=== PATIENT | female | born 1970 | race Caucasian/White ===

== ENCOUNTER 2020-11-18 08:19 | Emergency (ER) | payer BC ==
[~2020-11-18 08:19] MED LIST: BACTROBAN OINT22 GM EXT; DOXYCYCLINE MO100 M1 PO; NORCO 5-325 TA1 EACH PO; VISTARIL25 MG PO
[2020-11-18 09:00] LABS: HEMOGLOBIN 14.3 gm/dl (12.3-15.3); RED BLOOD COUNT 4.8 M/UL (4.00-5.10); WHITE BLOOD COUNT 7.7 K/UL (4.5-11.0)
[2020-11-18 09:21] LABS: BUN/CREATININE RATIO 27 (0-10)
[2020-11-18] MEDS ORDERED: BAYER CHEWABLE81 MG PO (16:19)
== END 2020-11-18 16:44 | disposition home or self-care (01) ==
LOC: ER1 08:19
PROVIDERS: Physician Assistant
DX: R20.2 Paresthesia of skin (principal); R51.9 Headache, unspecified; F17.200 Nicotine dependence, unspecified, uncomplicated; Z88.0 Allergy status to penicillin; Z88.6 Allergy status to analgesic agent
CPT/HCPCS: 70450; 70551; 80053; 80307; 81001; 82550; 82553; 83874; 84484; 85025; 85610; 85730; 93005; 96374; 99284; J1885

== ENCOUNTER → 2020-11-29 | Outpatient (CLI) | payer BC ==
[~2020-11-29] MED LIST changes: +BAYER CHEWABLE81 MG PO; +CIPRO500 MG PO; +FLAGYL500 MG PO; +ZOFRAN 4 MG TAB4 MG PO
== END ==
LOC: KOH-I 13:11
DX: M54.5 Low back pain (principal); M51.26 Other intervertebral disc displacement, lumbar region; M51.27 Other intervertebral disc displacement, lumbosacral region
CPT/HCPCS: 72148

== ENCOUNTER → 2021-02-10 | Day surgery (SDC) | payer BC | END | disposition home or self-care (01) | LOC: OR 10:22 | DX: D12.5 Benign neoplasm of sigmoid colon (principal); K21.9 Gastro-esophageal reflux disease without esophagitis; F17.219 Nicotine dependence, cigarettes, with unspecified nicotine-induced disorders; E07.9 Disorder of thyroid, unspecified; E66.3 Overweight; I49.9 Cardiac arrhythmia, unspecified; Z83.3 Family history of diabetes mellitus; Z88.6 Allergy status to analgesic agent; Z90.49 Acquired absence of other specified parts of digestive tract; Z68.25 Body mass index [BMI] 25.0-25.9, adult; Z20.822 Contact with and (suspected) exposure to COVID-19; Z82.49 Family history of ischemic heart disease and other diseases of the circulatory system | CPT/HCPCS: J2001; J2704; J7040 ==

== ENCOUNTER 2021-03-25 08:25 | Emergency (ER) | payer OTHER ==
[~2021-03-25 08:25] MED LIST changes: -CIPRO500 MG PO; -FLAGYL500 MG PO; -ZOFRAN 4 MG TAB4 MG PO
[2021-03-25 08:51] LABS: RED BLOOD COUNT 5.15 M/UL (4.00-5.10); WHITE BLOOD COUNT 10.7 K/UL (4.5-11.0)
[2021-03-25 09:10] LABS: BUN/CREATININE RATIO 16 (0-10)
[2021-03-25] MEDS ORDERED: FLAGYL500 MG PO (11:14)
[2021-03-25] MEDS ORDERED: CIPRO500 MG PO (11:14)
[2021-03-25] MEDS ORDERED: ZOFRAN 4 MG TAB4 MG PO (11:15)
== END 2021-03-25 12:10 | disposition home or self-care (01) ==
LOC: ER1 08:25
PROVIDERS: Emergency Medicine
DX: R10.31 Right lower quadrant pain (principal); R19.7 Diarrhea, unspecified; R11.10 Vomiting, unspecified; Z90.49 Acquired absence of other specified parts of digestive tract; F17.200 Nicotine dependence, unspecified, uncomplicated; Z88.6 Allergy status to analgesic agent; Z20.822 Contact with and (suspected) exposure to COVID-19
CPT/HCPCS: 80053; 81001; 82150; 83690; 85025; 96374; 96375; 99284; J2270; J2405; J7030; Q9967; U0002

== ENCOUNTER → 2021-06-20 | Outpatient (CLI) | payer BC ==
[~2021-06-20] MED LIST changes: +CIPRO500 MG PO; +FLAGYL500 MG PO; +ZOFRAN 4 MG TAB4 MG PO
== END ==
LOC: EXRD 14:54
DX: M25.522 Pain in left elbow (principal); M25.422 Effusion, left elbow
CPT/HCPCS: 73080

== ENCOUNTER 2021-07-13 18:56 | Emergency (ER) | payer BC ==
[2021-07-13 20:13] LABS: HEMOGLOBIN 14.4 gm/dl (12.3-15.3); RED BLOOD COUNT 4.73 M/UL (4.00-5.10)
[2021-07-13 20:32] LABS: BUN/CREATININE RATIO 21 (0-10)
[2021-07-13] MEDS ORDERED: TESSALON PERLE100 MG PO (22:32)
[2021-07-13] MEDS ORDERED: PROVENTIL HFA6.7 GM INH (22:32)
== END 2021-07-13 22:39 | disposition home or self-care (01) ==
LOC: ER1 18:56
PROVIDERS: Nurse Practitioner
DX: J06.9 Acute upper respiratory infection, unspecified (principal); Z20.822 Contact with and (suspected) exposure to COVID-19
CPT/HCPCS: 71045; 80053; 81001; 83690; 84703; 85025; 96374; 96375; 99283; J1885; J2765; U0002

== ENCOUNTER → 2021-07-14 | Outpatient (CLI) | payer BC ==
[~2021-07-14] MED LIST changes: +PROVENTIL HFA6.7 GM INH; +TESSALON PERLE100 MG PO
== END ==
LOC: KOH-I 13:26
DX: M24.022 Loose body in left elbow (principal)
CPT/HCPCS: 73221

== ENCOUNTER 2021-09-26 15:51 | Emergency (ER) | payer BC ==
[2021-09-26 17:36] LABS: HEMOGLOBIN 14.4 gm/dl (12.3-15.3); RED BLOOD COUNT 4.68 M/UL (4.00-5.10); WHITE BLOOD COUNT 13.2 K/UL (4.5-11.0)
[2021-09-26 18:00] LABS: BUN/CREATININE RATIO 17 (0-10)
[2021-09-26] MEDS ORDERED: ANTIVERT 12.512.5 MG PO (20:31)
[2021-09-26] MEDS ORDERED: MACROBID 100 M100 M1 PO (20:31)
[2021-09-26] MEDS ORDERED: ZOFRAN ODT 4 MG4 MG PO (20:31)
== END 2021-09-26 21:15 | disposition home or self-care (01) ==
LOC: ER1 15:51
PROVIDERS: Physician Assistant
DX: R42 Dizziness and giddiness (principal); R82.81 Pyuria; R11.0 Nausea; Z90.710 Acquired absence of both cervix and uterus; Z90.49 Acquired absence of other specified parts of digestive tract; F17.200 Nicotine dependence, unspecified, uncomplicated; Z88.8 Allergy status to other drugs, medicaments and biological substances
CPT/HCPCS: 80053; 80307; 81001; 82550; 82553; 83874; 84484; 85025; 87086; 93005; 99283

== ENCOUNTER → 2021-11-20 | Outpatient (CLI) | payer BC ==
[~2021-11-20] MED LIST changes: +ANTIVERT 12.512.5 MG PO; +MACROBID 100 M100 M1 PO; +ZOFRAN ODT 4 MG4 MG PO
== END ==
LOC: EXRD 14:12
DX: R05.9 Cough, unspecified (principal); R68.83 Chills (without fever)
CPT/HCPCS: 71046

== ENCOUNTER 2022-03-29 14:21 | Emergency (ER) | payer SELFPAY ==
[2022-03-29] MEDS ORDERED: DIFLUCAN150 MG PO (15:11)
[2022-03-29] MEDS ORDERED: MACROBID 100 M100 MG PO (15:51)
== END 2022-03-29 16:15 | disposition home or self-care (01) ==
LOC: ER1 14:21
DX: N76.0 Acute vaginitis (principal); N39.0 Urinary tract infection, site not specified; Z88.6 Allergy status to analgesic agent
CPT/HCPCS: 81001; 87086; 96372; 99283; J0696

== ENCOUNTER 2022-05-10 19:17 | Emergency (ER) | payer OTHER ==
[~2022-05-10 19:17] MED LIST changes: +DIFLUCAN150 MG PO; +MACROBID 100 M100 MG PO
[2022-05-10] MEDS ORDERED: TORADOL 10 MG T10 MG PO (21:44)
== END 2022-05-10 20:37 | disposition home or self-care (01) ==
LOC: ER1 19:17
DX: S83.511A Sprain of anterior cruciate ligament of right knee, initial encounter (principal); L25.9 Unspecified contact dermatitis, unspecified cause; F17.200 Nicotine dependence, unspecified, uncomplicated; Z88.6 Allergy status to analgesic agent; K21.9 Gastro-esophageal reflux disease without esophagitis; X50.9XXA Other and unspecified overexertion or strenuous movements or postures, initial encounter; Y92.89 Other specified places as the place of occurrence of the external cause; Y99.0 Civilian activity done for income or pay
CPT/HCPCS: 73564; 96372; 99283; J1885

== ENCOUNTER → 2022-06-06 | Outpatient (CLI) | payer OTHER ==
[~2022-06-06] MED LIST changes: +TORADOL 10 MG T10 MG PO
== END ==
LOC: MRI 10:19
DX: M25.561 Pain in right knee (principal); Z98.890 Other specified postprocedural states; R93.6 Abnormal findings on diagnostic imaging of limbs
CPT/HCPCS: 73721